=== PATIENT | male | born 1945 | race Caucasian/White ===

== ENCOUNTER 2019-12-06 12:38 | Outpatient (CLI) | payer OTHER | END 2019-12-06 23:59 | disposition home or self-care (01) | LOC: VAS 12:38 | PROVIDERS: ATTEND Orthopaedic Surgery | DX: I73.9 Peripheral vascular disease, unspecified (principal) | CPT/HCPCS: 93922 ==

== ENCOUNTER 2022-12-02 11:46 | Emergency (ER) | payer OTHER, MEDICARE ==
[~2022-12-02] VITALS: Ht 175.3 cm; Wt 79.1 kg
[~2022-12-02 11:46] MED LIST: AMLO10TA16 PO; APIX5TAB3 PO; ATOR-2 PO; BISA10SU62 RC; CYAN-104 PO; FERR325T28 PO; FLO0.4C PO; HYDR100T27 PO; INSU100V56 SQ; ISOS120T13 PO; LEVO100T PO; METO-411 PO; OMEP20CA16 PO; RANO500T3 PO
[2022-12-02 11:48] VITALS: BP 126/55; PULSE 72; RESP 16; TEMP 98.1; O2SAT 100
[2022-12-02 12:55] LABS: INR 1.1 INR; PROTHROMBIN TIME 11.6 SECONDS (9.0-12.0)
[2022-12-02 12:59] LABS: ALBUMIN 2.2 G/DL (3.4-5.0); ALBUMIN/GLOBULIN RATIO 0.5 (1.1-1.5); ANION GAP 10 (8-16); ASPARTATE AMINO TRANSFERASE 20 U/L (10-37); BILIRUBIN,TOTAL 0.5 MG/DL (0.1-1.0); BLOOD UREA NITROGEN 41 MG/DL (7-18); BUN/CREATININE RATIO 18.4 (10.0-20.0); CALCIUM 8.4 MG/DL (8.5-10.1); CHLORIDE 104 MMOL/L (99-107); CREATININE 2.23 MG/DL (0.60-1.10); GLUCOSE 145 MG/DL (70-104); POTASSIUM 5.4 MMOL/L (3.5-5.1); SODIUM 137 MMOL/L (135-145); TOTAL CARBON DIOXIDE 22.8 MMOL/L (24-32); TOTAL PROTEIN 6.5 G/DL (6.4-8.2); eCRCL 28 ML/MIN; eGFR 29 ML/MIN
[2022-12-02 13:00] LABS: ALANINE AMINOTRANSFERASE 15 U/L (12-78); ALKALINE PHOSPHATASE 71 IU/L (46-116)
[2022-12-02] MEDS ORDERED: CEPH-585 PO (13:32)
== END 2022-12-02 15:24 | disposition home or self-care (01) ==
LOC: ER 11:47
DX: T81.31XA Disruption of external operation (surgical) wound, not elsewhere classified, initial encounter (principal); K91.840 Postprocedural hemorrhage of a digestive system organ or structure following a digestive system procedure; I48.91 Unspecified atrial fibrillation; I25.10 Atherosclerotic heart disease of native coronary artery without angina pectoris; E78.00 Pure hypercholesterolemia, unspecified; I10 Essential (primary) hypertension; E11.9 Type 2 diabetes mellitus without complications; E03.9 Hypothyroidism, unspecified; Z85.9 Personal history of malignant neoplasm, unspecified; Z79.4 Long term (current) use of insulin; Z79.899 Other long term (current) drug therapy; Z85.51 Personal history of malignant neoplasm of bladder; Y83.8 Other surgical procedures as the cause of abnormal reaction of the patient, or of later complication, without mention of misadventure at the time of the procedure; Y73.3 Surgical instruments, materials and gastroenterology and urology devices (including sutures) associated with adverse incidents; Y92.89 Other specified places as the place of occurrence of the external cause
CPT/HCPCS: 12020; 36415; 80053; 85610; 99285; A6213; A6449

== ENCOUNTER 2022-12-31 21:40 | Inpatient (IN) | payer OTHER, MEDICARE ==
[~2022-12-31] VITALS: Ht 190.5 cm; Wt 79.5 kg
[~2022-12-31 21:40] MED LIST changes: +CEPH-585 PO
[2022-12-31 22:45] LABS: BASOPHILS # (AUTO) 0.1 X10'3 (0-0.2); EOSINOPHILS # (AUTO) 0.2 X10'3 (0-0.9); EOSINOPHILS % (AUTO) 2.2 % (0-6); HEMATOCRIT 22.9 % (42.0-52.0); HEMOGLOBIN 7.7 g/dl (14.0-17.9); LYMPHOCYTES # (AUTO) 1.3 X10'3 (1.1-4.8); LYMPHOCYTES % (AUTO) 18.1 % (21-51); MEAN CORPUSCULAR HEMOGLOBIN 30.2 PG (27.0-31.0); MEAN CORPUSCULAR HGB CONC 33.6 g/dL (33.0-36.5); MEAN CORPUSCULAR VOLUME 89.8 FL (78-98); MEAN PLATELET VOLUME 6.6 FL (7.4-10.4); MONOCYTES # (AUTO) 0.6 X10'3 (0-0.9); MONOCYTES % (AUTO) 8.4 % (2-12); NEUTROPHILS # (AUTO) 4.9 X10'3 (1.8-7.7); NEUTROPHILS % (AUTO) 70.3 % (42-75); PLATELET COUNT 229 X10'3 (140-440); RED BLOOD COUNT 2.55 X10'6 (4.70-6.10); RED CELL DISTRIBUTION WIDTH 14.9 % (11.5-14.5); WHITE BLOOD COUNT 6.9 X10'3 (4.5-11.0)
[2022-12-31 22:55] LABS: ALANINE AMINOTRANSFERASE 34 U/L (12-78); ALBUMIN 2.5 G/DL (3.4-5.0); ALBUMIN/GLOBULIN RATIO 0.5 (1.1-1.5); ALKALINE PHOSPHATASE 73 IU/L (46-116); ANION GAP 10 (8-16); ASPARTATE AMINO TRANSFERASE 29 U/L (10-37); BILIRUBIN,TOTAL 0.5 MG/DL (0.1-1.0); BLOOD UREA NITROGEN 80 MG/DL (7-18); BUN/CREATININE RATIO 31.7 (10.0-20.0); CALCIUM 8.4 MG/DL (8.5-10.1); CHLORIDE 102 MMOL/L (99-107); CREATININE 2.52 MG/DL (0.60-1.10); GLUCOSE 209 MG/DL (70-104); POTASSIUM 3.8 MMOL/L (3.5-5.1); SODIUM 131 MMOL/L (135-145); TOTAL PROTEIN 7.1 G/DL (6.4-8.2); eCRCL 28 ML/MIN; eGFR 25 ML/MIN
--- NOTE | 2023-01-01 00:53 | NUR ---
Patient bradycardic; HR 59 TO 33. Pt denies, cp, sob, dizziness.
[2023-01-01 02:20] LABS: THYROID STIMULATING HORMONE 1.14 ulU/ml (0.34-4.50)
[2023-01-01] MEDS ORDERED: bisacodyl 10mg suppository rectal RC PRN (03:20)
[2023-01-01] MEDS ORDERED: diphenhydrAMINE 25mg capsule PO PRN (03:20)
[2023-01-01] MEDS: normal saline 1000ml 1,000 ML IV SCH ×3 (03:20→19:43)
[2023-01-01] MEDS ORDERED: diphenhydrAMINE 50 mg/ml inj IV PRN (03:20)
[2023-01-01] MEDS ORDERED: HYDROcodone/acetaminophen 5mg/325mg tablet PO PRN (03:20)
[2023-01-01] MEDS ORDERED: acetaminophen 325mg tablet PO PRN ×2 (03:20)
[2023-01-01] MEDS ORDERED: morphine 2 MG/ML inj. syringe IV PRN (03:20)
[2023-01-01] MEDS ORDERED: mag hydrox/Alum hydrox/simeth 30ml oral suspension PO PRN (03:20)
[2023-01-01] MEDS ORDERED: ondansetron 4mg rapidly disintigrating tab PO PRN (03:20)
[2023-01-01] MEDS ORDERED: magnesium hydroxide 30ml (MOM) UD suspension PO PRN (03:20)
[2023-01-01] MEDS ORDERED: ondansetron/PF 4mg/2ml inj IV PRN (03:20)
[2023-01-01] MEDS ORDERED: DEXTROSE 15 GM of carb/4 tabs (each vial/BOTTLE has 4 tablets) PO PRN ×2 (03:25)
[2023-01-01] MEDS ORDERED: glucagon, human recombinant 1mg kit SUBCUT PRN (03:25)
[2023-01-01] MEDS ORDERED: insulin Lispro (HumaLOG) vial - multi-dose SQ SCH (03:25)
[2023-01-01] MEDS ORDERED: dextrose 50%-water 50ml dispensing syringe IV PRN ×2 (03:25)
[2023-01-01] MEDS ORDERED: MESSAGE TO PHARMACY PO ONE (03:25)
[2023-01-01 04:04] LABS: HEMOGLOBIN A1C 6.6 % (4.5-6.2)
[2023-01-01 04:11] LABS: APTT 35 SECONDS (22-32); D-DIMER 1.23 MG/L FEU (0-0.50); INR 1.2 INR; PROTHROMBIN TIME 12.4 SECONDS (9.0-12.0)
[2023-01-01 04:25] LABS: MAGNESIUM 1.4 MG/DL (1.5-2.4); PHOSPHORUS 3.7 MG/DL (2.3-4.5)
[2023-01-01 05:05] LABS: CLARITY,URINE TURBID (Clear); COLOR,URINE STRAW (Yellow); PH,URINE 6.5 (4.8-8.0); PROTEIN,URINE 30 mg/dl (Neg); UA COLLECTION TYPE FOLEY CATH
--- NOTE | 2023-01-01 05:05 | NUR ---
Patient has a urostomy site on his right abdomen that drains by gravity into a graduated bag. Pt also states he has a pressure wound on his left heel that is wrapped and covered in gauze. He states he as a similar wound but smaller on his right heel.
[2023-01-01 05:06] LABS: BILIRUBIN,URINE NEGATIVE (Neg); GLUCOSE, URINE NEGATIVE (Neg); KETONES,URINE NEGATIVE (Neg); LEUKOCYTE ESTERASE ,URINE LARGE (Neg); NITRITES, URINE POSITIVE (Neg); OCCULT BLOOD,URINE NEGATIVE (Neg); UROBILINOGEN,URINE 0.2 E.U/dL (0.2-1.0)
[2023-01-01 05:10] LABS: BACTERIA,URINE 4+ /HPF (Neg); RBC,URINE NONE SEEN /HPF (0-2); WBC,URINE TNTC /HPF (0-4)
[2023-01-01 05:11] LABS: SQUAMOUS EPITHELIAL CELL,UR NONE SEEN /LPF (FEW)
[2023-01-01 08:25] VITALS: BP 129/45; PULSE 59; RESP 13; TEMP 98.7; O2SAT 100
[2023-01-01 08:35] VITALS: RESP 13; O2SAT 100
[2023-01-01] MEDS: docusate sod 100mg capsule PO SCH ×2 (10:58→20:00)
[2023-01-01] MEDS: heparin, porcine 5000 units/ml vial SQ SCH ×2 (10:59→20:00)
[2023-01-01] MEDS: CefTRIAXone/D5W-Rocephin 1gm 50 ML IV SCH (10:59)
[2023-01-01 18:00] VITALS: BP 140/42; PULSE 61; RESP 18; TEMP 97.6; O2SAT 100
--- NOTE | 2023-01-01 18:24 | NUR ---
Report given to Veronica RUDOLPH. Pt resting comfortably at this time. Not much of an appetite at this time
[2023-01-01 20:00] VITALS: RESP 16; O2SAT 99
[2023-01-01] MEDS ORDERED: temazepam 15mg capsule PO PRN (21:00)
[2023-01-01] MEDS: insulin glargine (Lantus) pen - multi-dose SQ SCH (21:00)
[2023-01-01 22:00] VITALS: BP 157/42; PULSE 68; RESP 14; TEMP 97.8; O2SAT 100
[2023-01-02] VITALS (7 sets, daily range): BP systolic 97–165; BP diastolic 47–58; PULSE 55–64; RESP 14–20; TEMP 97–98; O2SAT 97–100
[2023-01-02 02:16] LABS: OCCULT BLOOD STOOL NEGATIVE (Neg)
[2023-01-02 06:19] LABS: INR 1.1 INR; PROTHROMBIN TIME 11.9 SECONDS (9.0-12.0)
[2023-01-02 06:24] LABS: BASOPHILS # (AUTO) 0.1 X10'3 (0-0.2); EOSINOPHILS # (AUTO) 0.2 X10'3 (0-0.9); EOSINOPHILS % (AUTO) 2.9 % (0-6); HEMATOCRIT 24.4 % (42.0-52.0); HEMOGLOBIN 8.2 g/dl (14.0-17.9); LYMPHOCYTES # (AUTO) 1.3 X10'3 (1.1-4.8); LYMPHOCYTES % (AUTO) 18.1 % (21-51); MEAN CORPUSCULAR HEMOGLOBIN 30.6 PG (27.0-31.0); MEAN CORPUSCULAR HGB CONC 33.5 g/dL (33.0-36.5); MEAN CORPUSCULAR VOLUME 91.5 FL (78-98); MEAN PLATELET VOLUME 6.5 FL (7.4-10.4); MONOCYTES # (AUTO) 0.5 X10'3 (0-0.9); MONOCYTES % (AUTO) 6.9 % (2-12); NEUTROPHILS % (AUTO) 71.1 % (42-75); PLATELET COUNT 225 X10'3 (140-440); RED BLOOD COUNT 2.67 X10'6 (4.70-6.10); RED CELL DISTRIBUTION WIDTH 15.2 % (11.5-14.5)
--- NOTE | 2023-01-02 06:33 | NUR ---
Problems reprioritized. Patient report given, questions answered & plan of care reviewed with johnna marinelli.
[2023-01-02 06:50] LABS: CHOL/HDL RATIO 2.6 (0.00-4.99); CHOLESTEROL 76 MG/DL (0-200); HDL CHOLESTEROL 29 MG/DL (35-60); LDL CHOLESTEROL 35 MG/DL (50-100); TRIGLYCERIDES 82 MG/DL (20-135)
[2023-01-02] MEDS: heparin, porcine 5000 units/ml vial SQ SCH ×2 (08:00→20:40)
[2023-01-02] MEDS: docusate sod 100mg capsule PO SCH ×2 (08:00→20:00)
[2023-01-02] MEDS: CefTRIAXone/D5W-Rocephin 1gm 50 ML IV SCH (08:22)
[2023-01-02] MEDS: normal saline 1000ml 1,000 ML IV SCH ×2 (09:20→19:20)
--- NOTE | 2023-01-02 18:35 | NUR ---
Report given to Roula WELSH pt resting comfortably and eating dinner. Addendum: 01/02/23 at 1835 by Sarah Beth Looney RN, RN Roula RUDOLPH
[2023-01-02] MEDS: insulin glargine (Lantus) pen - multi-dose SQ SCH (21:00)
[2023-01-03 02:00] VITALS: BP 142/52; PULSE 63; RESP 18; TEMP 97.8; O2SAT 97
--- NOTE | 2023-01-03 04:31 | NUR ---
LABORATORY TESTER documentation: I have reviewed and agree with assessment performed and documented by CARRIE Belcher
[2023-01-03] MEDS: normal saline 1000ml 1,000 ML IV SCH ×2 (05:20→08:11)
--- NOTE | 2023-01-03 06:22 | NUR ---
Patient in room PCU 3027. I have received report from Roula RUDOLPH and had the opportunity to ask questions and assume patient care.
[2023-01-03 06:33] LABS: INR 1.1 INR; PROTHROMBIN TIME 12.2 SECONDS (9.0-12.0)
[2023-01-03 06:48] LABS: BASOPHILS % (AUTO) 0.7 % (0-1); EOSINOPHILS # (AUTO) 0.3 X10'3 (0-0.9); EOSINOPHILS % (AUTO) 3.9 % (0-6); HEMATOCRIT 24.6 % (42.0-52.0); HEMOGLOBIN 8.3 g/dl (14.0-17.9); LYMPHOCYTES # (AUTO) 1.2 X10'3 (1.1-4.8); LYMPHOCYTES % (AUTO) 18.8 % (21-51); MEAN CORPUSCULAR HEMOGLOBIN 30.1 PG (27.0-31.0); MEAN CORPUSCULAR HGB CONC 33.7 g/dL (33.0-36.5); MEAN CORPUSCULAR VOLUME 89.4 FL (78-98); MEAN PLATELET VOLUME 6.4 FL (7.4-10.4); MONOCYTES # (AUTO) 0.5 X10'3 (0-0.9); MONOCYTES % (AUTO) 7.4 % (2-12); NEUTROPHILS # (AUTO) 4.5 X10'3 (1.8-7.7); NEUTROPHILS % (AUTO) 69.2 % (42-75); PLATELET COUNT 217 X10'3 (140-440); RED BLOOD COUNT 2.76 X10'6 (4.70-6.10); RED CELL DISTRIBUTION WIDTH 14.8 % (11.5-14.5); WHITE BLOOD COUNT 6.6 X10'3 (4.5-11.0)
[2023-01-03 07:00] VITALS: BP 157/52; PULSE 62; RESP 15; TEMP 97.3; O2SAT 99
[2023-01-03] MEDS: CefTRIAXone/D5W-Rocephin 1gm 50 ML IV SCH (07:49)
[2023-01-03] MEDS: docusate sod 100mg capsule PO SCH (08:00)
[2023-01-03] MEDS: heparin, porcine 5000 units/ml vial SQ SCH (08:04)
[2023-01-03 10:01] LABS: ALBUMIN 2.3 G/DL (3.4-5.0); ANION GAP 12 (8-16); BLOOD UREA NITROGEN 56 MG/DL (7-18); BUN/CREATININE RATIO 26.7 (10.0-20.0); CHLORIDE 107 MMOL/L (99-107); GLUCOSE 120 MG/DL (70-104); POTASSIUM 3.4 MMOL/L (3.5-5.1); SODIUM 135 MMOL/L (135-145); TOTAL CARBON DIOXIDE 16.5 MMOL/L (24-32); eCRCL 33 ML/MIN; eGFR 31 ML/MIN
[2023-01-03 10:09] LABS: CALCIUM 8.4 MG/DL (8.5-10.1)
--- NOTE | 2023-01-03 10:20 | NUR ---
Patient transfered to [facility] via gurney with [facility]le[facility] cargo. IV removed and tele monitor removed and returned to telephone solicitor supervisor. Report called to Travon RUDOLPH at [facility].
--- NOTE | 2023-01-03 12:16 | NUR ---
AGREE WITH CAMERA REPAIR TECHNICIAN AM ASSESSMENT
--- NOTE | 2023-01-03 14:38 | NUR ---
WOC unable to see patient today due to [facility] to a [facility] facility at 10:21am.
== END 2023-01-03 10:21 | DRG 683 ==
LOC: ER 21:41 → ED HOLD 01-01 03:21 → PCU 3S 01-01 08:29
PROVIDERS: ADMIT Family Medicine; ATTEND Family Medicine
DX: N17.0 Acute kidney failure with tubular necrosis (principal); E87.1 Hypo-osmolality and hyponatremia; I50.22 Chronic systolic (congestive) heart failure; E87.20 Acidosis, unspecified; I13.0 Hypertensive heart and chronic kidney disease with heart failure and stage 1 through stage 4 chronic kidney disease, or unspecified chronic kidney disease; I48.20 Chronic atrial fibrillation, unspecified; I49.8 Other specified cardiac arrhythmias; N17.9 Acute kidney failure, unspecified; E03.9 Hypothyroidism, unspecified; E78.00 Pure hypercholesterolemia, unspecified; I25.10 Atherosclerotic heart disease of native coronary artery without angina pectoris; B99.9 Unspecified infectious disease; U09.9 Post COVID-19 condition, unspecified; D64.9 Anemia, unspecified; N18.9 Chronic kidney disease, unspecified; K21.9 Gastro-esophageal reflux disease without esophagitis; M48.00 Spinal stenosis, site unspecified; E11.65 Type 2 diabetes mellitus with hyperglycemia; E11.22 Type 2 diabetes mellitus with diabetic chronic kidney disease; I27.20 Pulmonary hypertension, unspecified; Z79.01 Long term (current) use of anticoagulants; Z86.718 Personal history of other venous thrombosis and embolism; Z95.1 Presence of aortocoronary bypass graft; Z95.2 Presence of prosthetic heart valve; Z93.3 Colostomy status; Z79.899 Other long term (current) drug therapy; Z79.4 Long term (current) use of insulin; Z87.440 Personal history of urinary (tract) infections; Z82.3 Family history of stroke; Z83.3 Family history of diabetes mellitus; Z82.49 Family history of ischemic heart disease and other diseases of the circulatory system; Z80.9 Family history of malignant neoplasm, unspecified
CPT/HCPCS: 36415; 71045; 80048; 80053; 80061; 81001; 82272; 82800; 82948; 83036; 83605; 83735; 83880; 84100; 84443; 84484; 85025; 85379; 85610; 85730; 87040; 87077; 87081; 87088; 87186; 93005; 99285; A6212; A6213; A6222; A6223; A6250; A6258; A6446; A6449; G0378; J0696; J1644; J1815; J7030

== ENCOUNTER 2023-01-14 11:27 | Inpatient (IN) | payer OTHER, MEDICARE ==
[~2023-01-14] VITALS: Ht 190.5 cm; Wt 74.1 kg
[2023-01-14 12:35] LABS: BASOPHILS # (AUTO) 0.1 X10'3 (0-0.2); BASOPHILS % (AUTO) 0.5 % (0-1); EOSINOPHILS # (AUTO) 0.2 X10'3 (0-0.9); EOSINOPHILS % (AUTO) 1.6 % (0-6); HEMATOCRIT 26.5 % (42.0-52.0); HEMOGLOBIN 8.5 g/dl (14.0-17.9); LYMPHOCYTES # (AUTO) 1.3 X10'3 (1.1-4.8); LYMPHOCYTES % (AUTO) 10.6 % (21-51); MEAN CORPUSCULAR VOLUME 90.6 FL (78-98); MONOCYTES # (AUTO) 0.8 X10'3 (0-0.9); MONOCYTES % (AUTO) 6.5 % (2-12); NEUTROPHILS # (AUTO) 10.2 X10'3 (1.8-7.7); NEUTROPHILS % (AUTO) 80.8 % (42-75); PLATELET COUNT 238 X10'3 (140-440); RED BLOOD COUNT 2.93 X10'6 (4.70-6.10); WHITE BLOOD COUNT 12.6 X10'3 (4.5-11.0)
[2023-01-14 12:45] LABS: ALANINE AMINOTRANSFERASE 33 U/L (12-78); ALBUMIN 2.2 G/DL (3.4-5.0); ALBUMIN/GLOBULIN RATIO 0.5 (1.1-1.5); ALKALINE PHOSPHATASE 66 IU/L (46-116); ANION GAP 9 (8-16); ASPARTATE AMINO TRANSFERASE 61 U/L (10-37); BILIRUBIN,TOTAL 0.6 MG/DL (0.1-1.0); BLOOD UREA NITROGEN 61 MG/DL (7-18); BUN/CREATININE RATIO 19.4 (10.0-20.0); CALCIUM 8.9 MG/DL (8.5-10.1); CHLORIDE 103 MMOL/L (99-107); CREATININE 3.14 MG/DL (0.60-1.10); GLUCOSE 107 MG/DL (70-104); POTASSIUM 5.2 MMOL/L (3.5-5.1); SODIUM 128 MMOL/L (135-145); TOTAL CARBON DIOXIDE 16.4 MMOL/L (24-32); TOTAL PROTEIN 6.6 G/DL (6.4-8.2); eCRCL 21 ML/MIN; eGFR 19 ML/MIN
[2023-01-14 12:54] LABS: PRO BRAIN NATRIURETIC PEPTIDE 21262 PG/ML (0-450)
--- NOTE | 2023-01-14 15:22 | NUR ---
assuming care of pt primary rn redirected
[2023-01-14] MEDS ORDERED: CefTRIAXone 1000mg IM Kit (w/lidocaine diluent) IM ONE (15:35)
[2023-01-14 15:53] LABS: BASOPHILS # (AUTO) 0.1 X10'3 (0-0.2); BASOPHILS % (AUTO) 0.6 % (0-1); EOSINOPHILS # (AUTO) 0.2 X10'3 (0-0.9); EOSINOPHILS % (AUTO) 1.6 % (0-6); HEMATOCRIT 25.5 % (42.0-52.0); HEMOGLOBIN 8.3 g/dl (14.0-17.9); LYMPHOCYTES # (AUTO) 1.5 X10'3 (1.1-4.8); LYMPHOCYTES % (AUTO) 12.5 % (21-51); MEAN CORPUSCULAR HEMOGLOBIN 29.4 PG (27.0-31.0); MEAN CORPUSCULAR HGB CONC 32.6 g/dL (33.0-36.5); MEAN CORPUSCULAR VOLUME 90.2 FL (78-98); MEAN PLATELET VOLUME 6.4 FL (7.4-10.4); MONOCYTES # (AUTO) 0.8 X10'3 (0-0.9); MONOCYTES % (AUTO) 6.5 % (2-12); NEUTROPHILS # (AUTO) 9.7 X10'3 (1.8-7.7); NEUTROPHILS % (AUTO) 78.8 % (42-75); PLATELET COUNT 244 X10'3 (140-440); RED BLOOD COUNT 2.83 X10'6 (4.70-6.10); RED CELL DISTRIBUTION WIDTH 15.8 % (11.5-14.5); WHITE BLOOD COUNT 12.3 X10'3 (4.5-11.0)
[2023-01-14] MEDS ORDERED: mag hydrox/Alum hydrox/simeth 30ml oral suspension PO PRN (17:20)
[2023-01-14] MEDS ORDERED: acetaminophen 325mg tablet PO PRN ×2 (17:20)
[2023-01-14] MEDS ORDERED: morphine 2 MG/ML inj. syringe IV PRN ×2 (17:20)
[2023-01-14] MEDS ORDERED: ondansetron/PF 4mg/2ml inj IV PRN (17:20)
[2023-01-14] MEDS ORDERED: magnesium hydroxide 30ml (MOM) UD suspension PO PRN (17:20)
[2023-01-14] MEDS ORDERED: CefTRIAXone/D5W-Rocephin 1gm 50 ML IV ONE (17:30)
[2023-01-14] MEDS ORDERED: DRON2.5C18 PO (17:42)
[2023-01-14] MEDS ORDERED: SODI100035 PO (17:42)
[2023-01-14] MEDS ORDERED: TEMA15CA5 PO (17:42)
[2023-01-14] MEDS ORDERED: INSU100V49 SQ (17:42)
[2023-01-14] MEDS ORDERED: HYDR-3965 PO (17:42)
[2023-01-14] MEDS ORDERED: AMLO5TAB PO (17:42)
[2023-01-14] MEDS ORDERED: METO-384 PO (17:42)
[2023-01-14] MEDS ORDERED: HYDR-4070 PO (17:42)
[2023-01-14] MEDS ORDERED: INSU100V56 SQ (17:42)
[2023-01-14] MEDS ORDERED: ASCO500C17 PO (17:42)
[2023-01-14] MEDS: normal saline 1000ml 1,000 ML IV SCH ×2 (17:43→22:00)
--- NOTE | 2023-01-14 18:26 | NUR ---
ROCEPHINE 1 GM COMPLETED INFUSION PT KERI WELL NO ADVERSE RXNT NOTED
[2023-01-14] MEDS: docusate sod 100mg capsule PO SCH (20:00)
--- NOTE | 2023-01-14 22:00 | NUR ---
Patient in room ORTHO 4011. I have received report from BLAISE Washington and had the opportunity to ask questions and assume patient care.
[2023-01-14] MEDS ORDERED: glucagon, human recombinant 1mg kit SUBCUT PRN (23:15)
[2023-01-14] MEDS ORDERED: MESSAGE TO PHARMACY PO ONE (23:15)
[2023-01-14] MEDS ORDERED: dextrose 50%-water 50ml dispensing syringe IV PRN ×2 (23:15)
[2023-01-14] MEDS ORDERED: DEXTROSE 15 GM of carb/4 tabs (each vial/BOTTLE has 4 tablets) PO PRN ×2 (23:15)
[2023-01-14] MEDS ORDERED: insulin Lispro (HumaLOG) vial - multi-dose SQ SCH (23:15)
[2023-01-14 23:45] VITALS: RESP 17; O2SAT 97
[2023-01-15] VITALS: BP 132/49; PULSE 72; RESP 17; TEMP 97.2; O2SAT 98
[2023-01-15] MEDS: normal saline 1000ml 1,000 ML IV SCH (03:13)
[2023-01-15 06:00] VITALS: BP 141/47; PULSE 79; RESP 16; TEMP 97.9; O2SAT 98
--- NOTE | 2023-01-15 06:35 | NUR ---
Patient in room ORTHO 4011. I have received report from Asha and had the opportunity to ask questions and assume patient care.
[2023-01-15] MEDS: docusate sod 100mg capsule PO SCH ×2 (06:39→20:00)
--- NOTE | 2023-01-15 06:40 | NUR ---
Problems reprioritized. Patient report given, questions answered & plan of care reviewed with BLAISE Coughlin.
[2023-01-15 08:33] LABS: BASOPHILS # (AUTO) 0.1 X10'3 (0-0.2); BASOPHILS % (AUTO) 0.4 % (0-1); EOSINOPHILS # (AUTO) 0.1 X10'3 (0-0.9); HEMATOCRIT 26.2 % (42.0-52.0); HEMOGLOBIN 8.4 g/dl (14.0-17.9); LYMPHOCYTES # (AUTO) 0.9 X10'3 (1.1-4.8); LYMPHOCYTES % (AUTO) 6.8 % (21-51); MEAN CORPUSCULAR HEMOGLOBIN 29.3 PG (27.0-31.0); MEAN CORPUSCULAR HGB CONC 32.1 g/dL (33.0-36.5); MEAN CORPUSCULAR VOLUME 91.3 FL (78-98); MEAN PLATELET VOLUME 6.6 FL (7.4-10.4); MONOCYTES # (AUTO) 0.9 X10'3 (0-0.9); MONOCYTES % (AUTO) 6.8 % (2-12); NEUTROPHILS # (AUTO) 11.8 X10'3 (1.8-7.7); PLATELET COUNT 232 X10'3 (140-440); RED BLOOD COUNT 2.87 X10'6 (4.70-6.10); WHITE BLOOD COUNT 13.9 X10'3 (4.5-11.0)
[2023-01-15 09:02] LABS: ALBUMIN 2.1 G/DL (3.4-5.0); ANION GAP 12 (8-16); BLOOD UREA NITROGEN 56 MG/DL (7-18); BUN/CREATININE RATIO 18.8 (10.0-20.0); CALCIUM 8.3 MG/DL (8.5-10.1); CHLORIDE 105 MMOL/L (99-107); CREATININE 2.98 MG/DL (0.60-1.10); GLUCOSE 94 MG/DL (70-104); POTASSIUM 4.6 MMOL/L (3.5-5.1); SODIUM 130 MMOL/L (135-145); eCRCL 22 ML/MIN; eGFR 21 ML/MIN
[2023-01-15 09:08] LABS: TOTAL CARBON DIOXIDE 12.6 MMOL/L (24-32)
--- NOTE | 2023-01-15 09:16 | NUR ---
PAGER ID: [phone] MESSAGE: Critical CO2 on Bala Cordero in [id number] -Madyson [phone]
[2023-01-15] MEDS ORDERED: temazepam 15mg capsule PO PRN (13:20)
[2023-01-15] MEDS ORDERED: MESSAGE TO PHARMACY PO ONE (13:55)
[2023-01-15] MEDS ORDERED: insulin Lispro (HumaLOG) vial - multi-dose SQ SCH (13:55)
[2023-01-15] MEDS ORDERED: dextrose 50%-water 50ml dispensing syringe IV PRN ×2 (13:55)
[2023-01-15] MEDS ORDERED: DEXTROSE 15 GM of carb/4 tabs (each vial/BOTTLE has 4 tablets) PO PRN ×2 (13:55)
[2023-01-15] MEDS ORDERED: glucagon, human recombinant 1mg kit SUBCUT PRN (13:55)
[2023-01-15] MEDS: HYDROcodone/acetaminophen 5mg/325mg tablet PO PRN ×2 (14:20→20:39)
--- NOTE | 2023-01-15 15:49 | NUR ---
Low jill and malnutrition consult: Per RN malnutrition screen pt reports 24-33 pound wt loss and a decreased intake/appetite. Pt seen at bedside states he's lost about 60 pounds in one year and used to weigh 230 pounds. Prior wt in EMR on 05/28/21 of 100kg (220 pounds) though current wt of 74.09kg (163 pounds is not scaled). Pt states he tries to drink Boost at home since he has two cases though is nervous about drinking them due to his"kidney problems and the doctors working hard to improve them." Pt did not have physical signs of fat or muscle wasting at this time. Additionally pt does not have edema nor muscle weakness therefore lacking a minimum of two malnutrition criteria at this time. Pt agreeable to drinking Nepro to better help meet estimated needs; MD notified. Pt is currently on a carbohydrate controlled diet with 0-25% intake for first two meals. Discussed with RN regarding liberalizing to regular diet given carbohydrate controlled not appropriate due to A1c of 6.6%. Pt also request chicken noodle soup, cream of chicken, or tomato soup with lunch and dinner meals; communicated with dietary. Pt presents with a a low jill score of 11 per EMR. Per RN physical assessment pt has a reddened to coccyx area and diabetic ulcer to heal though not resulting in wound care consult at this time per EMR. Will continue to follow and make recommendations as appropriate. Addendum: 01/15/23 at [address] Amended: Links added.
[2023-01-15 16:02] LABS: HEMOGLOBIN A1C 5.9 % (4.5-6.2)
--- NOTE | 2023-01-15 17:19 | NUR ---
PAGER ID: [phone] MESSAGE: Bala Cordero in [id number] - so you want to continue tele? Pt in afib. -Madyson [phone]
[2023-01-15] MEDS ORDERED: NUT.TX.IMP.RENAL FXN,LAC-REDUC (Nepro) 237 ML VANILLA PO SCH (17:30)
[2023-01-15 18:00] VITALS: BP 129/48; PULSE 64; RESP 18; TEMP 97.5; O2SAT 97
--- NOTE | 2023-01-15 18:40 | NUR ---
Patient in room ORTHO 4011. I have received report from BLAISE Coughlin and had the opportunity to ask questions and assume patient care.
[2023-01-15 20:00] VITALS: RESP 14; O2SAT 96
[2023-01-15] MEDS: atorvastatin 20mg tablet PO SCH (20:38)
[2023-01-15] MEDS: ferrous sulfate 325mg tablet PO SCH (20:38)
[2023-01-15] MEDS: ranolazine 500mg SR tablet (Q12H) PO SCH (20:38)
[2023-01-15] MEDS: ascorbic acid 500mg tablet PO SCH (20:39)
[2023-01-15] MEDS: apixaban 5mg tablet PO SCH (20:39)
[2023-01-15] MEDS: insulin glargine (Lantus) pen - multi-dose SQ SCH ×2 (21:00)
[2023-01-15 22:00] VITALS: BP 129/45; PULSE 64; RESP 14; TEMP 98; O2SAT 96
[2023-01-16 03:31] LABS: ABG BASE EXCESS -14.8 mmol/L (-2.0-2.0); ABG HCO3 10.4 mmol/L (22.0-26.0); ABG PCO2 (T) 22.1 mmHg (35.0-48.0); ABG PH (T) 7.287 (7.340-7.440); ABG PO2 (T) 90.2 mmHg (75.0-100.0); FCOHb 0.3 % (0.0-3.9); FMetHb 0.3 % (0.0-1.5); FO2Hb 96.4 % (94-97); MODE ROOM AIR; PATIENT TEMPERATURE 36.5; TOTAL HEMOGLOBIN 8.9 G/dl (14.0-17.9)
[2023-01-16] MEDS ORDERED: sodium bicarbonate (8.4%) inj. 100 MEQ in dextrose 5%-water 1,000 ML IV PRN (03:55)
[2023-01-16] MEDS: sodium bicarbonate (8.4%) inj. 100 MEQ in dextrose 5%-water 1,000 ML IV SCH ×2 (05:15→15:57)
--- NOTE | 2023-01-16 06:30 | NUR ---
Patient in room ORTHO 4011. I have received report from MARY ANN WELSH and had the opportunity to ask questions and assume patient care.
--- NOTE | 2023-01-16 06:31 | NUR ---
Problems reprioritized. Patient report given, questions answered & plan of care reviewed with BLAISE Moreau.
[2023-01-16 06:36] VITALS: BP 146/47; PULSE 86; RESP 22; TEMP 97.6; O2SAT 98
[2023-01-16 06:53] LABS: BASOPHILS # (AUTO) 0.1 X10'3 (0-0.2); BASOPHILS % (AUTO) 0.5 % (0-1); EOSINOPHILS # (AUTO) 0.2 X10'3 (0-0.9); EOSINOPHILS % (AUTO) 1.5 % (0-6); HEMATOCRIT 26.9 % (42.0-52.0); HEMOGLOBIN 8.8 g/dl (14.0-17.9); LYMPHOCYTES # (AUTO) 1.3 X10'3 (1.1-4.8); LYMPHOCYTES % (AUTO) 10.9 % (21-51); MEAN CORPUSCULAR HEMOGLOBIN 29.7 PG (27.0-31.0); MEAN CORPUSCULAR HGB CONC 32.6 g/dL (33.0-36.5); MEAN PLATELET VOLUME 6.2 FL (7.4-10.4); MONOCYTES # (AUTO) 0.7 X10'3 (0-0.9); MONOCYTES % (AUTO) 5.9 % (2-12); NEUTROPHILS # (AUTO) 9.8 X10'3 (1.8-7.7); NEUTROPHILS % (AUTO) 81.2 % (42-75); PLATELET COUNT 229 X10'3 (140-440); RED BLOOD COUNT 2.95 X10'6 (4.70-6.10); RED CELL DISTRIBUTION WIDTH 16.1 % (11.5-14.5); WHITE BLOOD COUNT 12.1 X10'3 (4.5-11.0)
[2023-01-16 07:20] LABS: ANION GAP 15 (8-16); BLOOD UREA NITROGEN 51 MG/DL (7-18); BUN/CREATININE RATIO 18.1 (10.0-20.0); CALCIUM 8.3 MG/DL (8.5-10.1); CHLORIDE 105 MMOL/L (99-107); CREATININE 2.81 MG/DL (0.60-1.10); GLUCOSE 127 MG/DL (70-104); POTASSIUM 4.2 MMOL/L (3.5-5.1); SODIUM 132 MMOL/L (135-145); eCRCL 23 ML/MIN; eGFR 22 ML/MIN
--- NOTE | 2023-01-16 07:31 | NUR ---
PAGER ID: [phone] MESSAGE: BLAISE WILOCX, ORTHO, 8798. RE: [id number]. CRITICAL LAB C02 12
[2023-01-16] MEDS: cyanocobalamin 500mcg tablet PO SCH (07:51)
[2023-01-16] MEDS: tamsulosin 0.4mg capsule PO SCH (07:51)
[2023-01-16] MEDS: ascorbic acid 500mg tablet PO SCH ×2 (07:52→20:21)
[2023-01-16] MEDS: levoTHYROXINE 100mcg tablet PO SCH (07:52)
[2023-01-16] MEDS: ranolazine 500mg SR tablet (Q12H) PO SCH ×2 (07:52→20:22)
[2023-01-16] MEDS: ferrous sulfate 325mg tablet PO SCH ×2 (07:52→20:21)
[2023-01-16] MEDS: docusate sod 100mg capsule PO SCH ×2 (07:53→20:00)
[2023-01-16] MEDS: apixaban 5mg tablet PO SCH ×2 (07:53→20:21)
[2023-01-16] MEDS: pantoprazole 40mg Tablet.DR PO SCH ×2 (07:53→09:38)
[2023-01-16] MEDS ORDERED: metoprolol succinate 25mg (24-HOUR) SR. Tablet PO SCH (08:00)
[2023-01-16] MEDS ORDERED: amLODIPine 5mg tablet PO SCH (08:00)
[2023-01-16] MEDS: dronabinol 2.5mg capsule PO SCH (08:40)
[2023-01-16 10:00] VITALS: BP 134/44; PULSE 68; RESP 16; TEMP 97.8; O2SAT 99
[2023-01-16 10:39] LABS: C DIFF ANTIGEN POSITIVE (NEGATIVE); C DIFF SPECIMEN=DIARRHEA? ACCEPTABLE; C DIFFICILE TOXINS A&B POSITIVE (Neg)
--- NOTE | 2023-01-16 10:41 | NUR ---
PAGER ID: [phone] MESSAGE: BLAISE WILCOX, ORTHO, 8881. RE: [id number]. PT. POSSITIVE FOR C-DIFF
--- NOTE | 2023-01-16 11:49 | NUR ---
PAGER ID: [phone] MESSAGE: BLAISE WILCOX, ORTHO, 0082. RE: [id number]. CAN I DC GLUCOSE CHECK, A1C 5.9?
[2023-01-16 12:10] VITALS: RESP 16; O2SAT 99
--- NOTE | 2023-01-16 12:18 | NUR ---
PT. HAS A UROSTOMY WITH DRAINABLE BAG Addendum: 01/16/23 at 1229 by Kishor Cotter RN Amended: Links added.
--- NOTE | 2023-01-16 12:18 | NUR ---
Patient has a urostomy with drainable bag for urine Addendum: 01/16/23 at 1229 by Genet BRIGGS Amended: Links added.
[2023-01-16] MEDS: vancomycin 125mg/5ml ORAL solution 5ml UD oral syringe PO SCH ×2 (15:07→20:21)
[2023-01-16] MEDS: HYDROcodone/acetaminophen 5mg/325mg tablet PO PRN (15:59)
--- NOTE | 2023-01-16 17:12 | NUR ---
Student's charting reviewed by the instructor.
[2023-01-16 18:00] VITALS: BP 139/44; PULSE 61; RESP 16; TEMP 98.1; O2SAT 97
--- NOTE | 2023-01-16 18:44 | NUR ---
Problems reprioritized. Patient report given TO JULY RN, questions answered & plan of care reviewed with .
[2023-01-16] MEDS: sodium bicarbonate 650mg tablet PO SCH (20:21)
[2023-01-16] MEDS: atorvastatin 20mg tablet PO SCH (20:22)
[2023-01-16] MEDS: insulin glargine (Lantus) pen - multi-dose SQ SCH ×2 (21:00)
[2023-01-16 22:00] VITALS: BP 140/42; PULSE 64; RESP 16; TEMP 97.7; O2SAT 99
[2023-01-17] MEDS: vancomycin 125mg/5ml ORAL solution 5ml UD oral syringe PO SCH ×3 (02:37→12:42)
[2023-01-17 06:09] LABS: BASOPHILS # (AUTO) 0.1 X10'3 (0-0.2); BASOPHILS % (AUTO) 0.4 % (0-1); EOSINOPHILS # (AUTO) 0.2 X10'3 (0-0.9); EOSINOPHILS % (AUTO) 1.7 % (0-6); HEMATOCRIT 26.1 % (42.0-52.0); HEMOGLOBIN 8.6 g/dl (14.0-17.9); LYMPHOCYTES # (AUTO) 1.3 X10'3 (1.1-4.8); LYMPHOCYTES % (AUTO) 8.7 % (21-51); MEAN CORPUSCULAR HEMOGLOBIN 29.5 PG (27.0-31.0); MEAN CORPUSCULAR HGB CONC 33.1 g/dL (33.0-36.5); MEAN PLATELET VOLUME 6.6 FL (7.4-10.4); MONOCYTES # (AUTO) 0.9 X10'3 (0-0.9); MONOCYTES % (AUTO) 6.3 % (2-12); NEUTROPHILS # (AUTO) 12.3 X10'3 (1.8-7.7); NEUTROPHILS % (AUTO) 82.9 % (42-75); PLATELET COUNT 229 X10'3 (140-440); RED BLOOD COUNT 2.93 X10'6 (4.70-6.10); WHITE BLOOD COUNT 14.8 X10'3 (4.5-11.0)
[2023-01-17 06:17] LABS: ALBUMIN 1.8 G/DL (3.4-5.0); ANION GAP 14 (8-16); BLOOD UREA NITROGEN 45 MG/DL (7-18); BUN/CREATININE RATIO 16.8 (10.0-20.0); CALCIUM 7.7 MG/DL (8.5-10.1); CHLORIDE 104 MMOL/L (99-107); CREATININE 2.68 MG/DL (0.60-1.10); GLUCOSE 155 MG/DL (70-104); POTASSIUM 3.4 MMOL/L (3.5-5.1); SODIUM 133 MMOL/L (135-145); TOTAL CARBON DIOXIDE 15.1 MMOL/L (24-32); eCRCL 24 ML/MIN; eGFR 23 ML/MIN
--- NOTE | 2023-01-17 06:30 | NUR ---
RECEIVED REPORT FROM GISEL, RN
[2023-01-17] MEDS ORDERED: potassium Cl 20 mEq SR tablet PO STA (07:53)
[2023-01-17] MEDS: docusate sod 100mg capsule PO SCH (07:57)
[2023-01-17] MEDS: dronabinol 2.5mg capsule PO SCH (08:00)
[2023-01-17] MEDS ORDERED: amLODIPine 5mg tablet PO SCH (08:00)
[2023-01-17] MEDS: tamsulosin 0.4mg capsule PO SCH (08:00)
[2023-01-17] MEDS: ferrous sulfate 325mg tablet PO SCH (08:06)
[2023-01-17] MEDS: ascorbic acid 500mg tablet PO SCH (08:06)
[2023-01-17] MEDS: apixaban 5mg tablet PO SCH (08:07)
[2023-01-17] MEDS: sodium bicarbonate 650mg tablet PO SCH ×2 (08:07→12:42)
[2023-01-17] MEDS: ranolazine 500mg SR tablet (Q12H) PO SCH (08:07)
[2023-01-17] MEDS: cyanocobalamin 500mcg tablet PO SCH (08:07)
[2023-01-17] MEDS: levoTHYROXINE 100mcg tablet PO SCH (08:07)
[2023-01-17] MEDS: pantoprazole 40mg Tablet.DR PO SCH (08:09)
[2023-01-17 10:00] VITALS: BP_SYST 121; BP_SYST 133; BP_DIAS 44; BP_DIAS 65; PULSE 64; PULSE 65; RESP 15; RESP 16; TEMP 98; TEMP 98.3; O2SAT 97; O2SAT 98
--- NOTE | 2023-01-17 13:52 | NUR ---
PRESSURE ULCER EDUCATION: DEFINITION: A pressure ulcer is an area of skin that breaks down when you stay in one position too long. The constant pressure against the skin reduces the blood flow to that area and the affected tissue dies. CAUSES: "Being bedridden or in a wheelchair "Fragile skin "Having a chronic condition, such as diabetes or vascular disease "Inability to move certain parts of your body without assistance "Older age "Incontinence of urine or stool SYMPTOMS: "A reddened area that DOES NOT turn white when pressed on - this can be the beginning of a pressure ulcer "A blister, deep sore or a crater - these can be advanced pressure ulcers FIRST AID: "Relieve the pressure on this area "Keep the area clean and dry "Call your primary doctor if you see any of the above symptoms "DO NOT massage the area "DO NOT use a donut shaped or ring shaped pillow- these actually interfere with the blood flow and cause complications PREVENTION: "Check for pressure ulcers everyday "Change position at least every two hours to relieve pressure "Use items that help relieve pressure- pillows, sheepskin, foam padding, and powders. "Keep skin clean and dry "Eat healthy well balanced meals "Exercise daily IF YOU SEE ANY OF THESE SYMPTOMS WHILE IN THE HOSPITAL - TELL YOUR NURSE IMMEDIATELY. IF YOU SEE ANY OF THESE SYMPTOMS WHILE AT HOME OR HAVE ANY QUESTIONS OR CONCERNS ABOUT PRESSURE ULCERS - CALL YOUR PRIMARY DOCTOR IMMEDIATELY. Addendum: 01/17/23 at 1353 by Emmanuel Jackson RN Amended: Links added.
--- NOTE | 2023-01-17 15:17 | NUR ---
gave report to yves shaffer at [facility]
== END 2023-01-17 16:49 | DRG 308 ==
LOC: ER 11:28 → ED HOLD 17:25 → EDBEDREQ 21:04 → ORTHO 4S 23:45
PROVIDERS: ADMIT Internal Medicine; ATTEND Internal Medicine
DX: R00.1 Bradycardia, unspecified (principal); N17.0 Acute kidney failure with tubular necrosis; R65.10 Systemic inflammatory response syndrome (SIRS) of non-infectious origin without acute organ dysfunction; E03.9 Hypothyroidism, unspecified; I12.9 Hypertensive chronic kidney disease with stage 1 through stage 4 chronic kidney disease, or unspecified chronic kidney disease; N18.30 Chronic kidney disease, stage 3 unspecified; E10.9 Type 1 diabetes mellitus without complications; E78.00 Pure hypercholesterolemia, unspecified; I25.10 Atherosclerotic heart disease of native coronary artery without angina pectoris; I48.0 Paroxysmal atrial fibrillation; D50.9 Iron deficiency anemia, unspecified; Z79.4 Long term (current) use of insulin; Z95.1 Presence of aortocoronary bypass graft; Z80.9 Family history of malignant neoplasm, unspecified; Z82.3 Family history of stroke; Z82.49 Family history of ischemic heart disease and other diseases of the circulatory system; Z83.3 Family history of diabetes mellitus; Z85.51 Personal history of malignant neoplasm of bladder; Z86.73 Personal history of transient ischemic attack (TIA), and cerebral infarction without residual deficits; T50.905A Adverse effect of unspecified drugs, medicaments and biological substances, initial encounter; Y92.89 Other specified places as the place of occurrence of the external cause
CPT/HCPCS: 36415; 36600; 71045; 80048; 80053; 82803; 82948; 83036; 83605; 83880; 84484; 85018; 85025; 87040; 87081; 87324; 87449; 93005; 93306; 99285; A5200; A6212; A6213; A6222; A6250; A6449; G0378; J0696; J1815; J2405; J3490; J7030; J7070; Q0167

== ENCOUNTER 2023-01-28 16:08 | Inpatient (IN) | payer OTHER, MEDICARE ==
[~2023-01-28] VITALS: Ht 190.5 cm; Wt 72.7 kg
[~2023-01-28 16:08] MED LIST changes: -AMLO10TA16 PO; +AMLO5TAB PO; +ASCO500C17 PO; -BISA10SU62 RC; -CEPH-585 PO; +DRON2.5C18 PO; +HYDR-3965 PO; +HYDR-4070 PO; -HYDR100T27 PO; +INSU100V49 SQ; +METO-384 PO; -METO-411 PO; +SODI100035 PO; +TEMA15CA5 PO
[2023-01-28 20:01] LABS: BASOPHILS # (AUTO) 0.1 X10'3 (0-0.2); BASOPHILS % (AUTO) 0.8 % (0-1); EOSINOPHILS # (AUTO) 0.2 X10'3 (0-0.9); EOSINOPHILS % (AUTO) 1.8 % (0-6); HEMATOCRIT 27.3 % (42.0-52.0); HEMOGLOBIN 8.9 g/dl (14.0-17.9); LYMPHOCYTES # (AUTO) 1.1 X10'3 (1.1-4.8); LYMPHOCYTES % (AUTO) 10.7 % (21-51); MEAN CORPUSCULAR HEMOGLOBIN 29.9 PG (27.0-31.0); MEAN CORPUSCULAR HGB CONC 32.8 g/dL (33.0-36.5); MEAN CORPUSCULAR VOLUME 91.1 FL (78-98); MEAN PLATELET VOLUME 6.6 FL (7.4-10.4); MONOCYTES # (AUTO) 0.7 X10'3 (0-0.9); MONOCYTES % (AUTO) 6.6 % (2-12); NEUTROPHILS # (AUTO) 8.4 X10'3 (1.8-7.7); NEUTROPHILS % (AUTO) 80.1 % (42-75); PLATELET COUNT 307 X10'3 (140-440); RED BLOOD COUNT 2.99 X10'6 (4.70-6.10); RED CELL DISTRIBUTION WIDTH 17.3 % (11.5-14.5); WHITE BLOOD COUNT 10.5 X10'3 (4.5-11.0)
[2023-01-28 20:10] LABS: ALANINE AMINOTRANSFERASE 53 U/L (12-78); ALBUMIN 2.2 G/DL (3.4-5.0); ALBUMIN/GLOBULIN RATIO 0.4 (1.1-1.5); ALKALINE PHOSPHATASE 75 IU/L (46-116); ANION GAP 8 (8-16); ASPARTATE AMINO TRANSFERASE 42 U/L (10-37); BILIRUBIN,TOTAL 0.6 MG/DL (0.1-1.0); BLOOD UREA NITROGEN 71 MG/DL (7-18); BUN/CREATININE RATIO 26.3 (10.0-20.0); CALCIUM 9.3 MG/DL (8.5-10.1); CHLORIDE 102 MMOL/L (99-107); GLUCOSE 214 MG/DL (70-104); POTASSIUM 5.8 MMOL/L (3.5-5.1); SODIUM 132 MMOL/L (135-145); TOTAL CARBON DIOXIDE 22.1 MMOL/L (24-32); TOTAL PROTEIN 7.3 G/DL (6.4-8.2); eCRCL 24 ML/MIN; eGFR 23 ML/MIN
[2023-01-28] MEDS ORDERED: normal saline 1000ML IV soln IVB ONE (20:15)
[2023-01-28 20:19] LABS: PRO BRAIN NATRIURETIC PEPTIDE 14222 PG/ML (0-450)
[2023-01-28] MEDS ORDERED: azithromycin/NS 500mg/250ml 250 ML IV ONE (20:50)
[2023-01-28] MEDS ORDERED: CefTRIAXone/D5W-Rocephin 1gm 50 ML IV ONE (20:50)
[2023-01-28] MEDS ORDERED: temazepam 15mg capsule PO PRN (21:00)
[2023-01-28] MEDS ORDERED: diphenhydrAMINE 50 mg/ml inj IV PRN (23:30)
[2023-01-28] MEDS ORDERED: HYDROcodone/acetaminophen 5mg/325mg tablet PO PRN (23:30)
[2023-01-28] MEDS ORDERED: ondansetron 4mg rapidly disintigrating tab PO PRN (23:30)
[2023-01-28] MEDS ORDERED: mag hydrox/Alum hydrox/simeth 30ml oral suspension PO PRN (23:30)
[2023-01-28] MEDS ORDERED: bisacodyl 10mg suppository rectal RC PRN (23:30)
[2023-01-28] MEDS ORDERED: ipratropium/albuterol 3ml nebule NEB PRN (23:30)
[2023-01-28] MEDS ORDERED: acetaminophen 650mg rectal suppository RC PRN (23:30)
[2023-01-28] MEDS: normal saline 1000ml 1,000 ML IV SCH (23:30)
[2023-01-28] MEDS ORDERED: ondansetron/PF 4mg/2ml inj IV PRN (23:30)
[2023-01-28] MEDS ORDERED: diphenhydrAMINE 25mg capsule PO PRN (23:30)
[2023-01-28] MEDS ORDERED: morphine 2 MG/ML inj. syringe IV PRN ×2 (23:30)
[2023-01-28] MEDS ORDERED: magnesium hydroxide 30ml (MOM) UD suspension PO PRN (23:30)
[2023-01-28] MEDS ORDERED: acetaminophen 325mg tablet PO PRN ×2 (23:30)
[2023-01-28] MEDS ORDERED: glucagon, human recombinant 1mg kit SUBCUT PRN (23:35)
[2023-01-28] MEDS ORDERED: CALCIUM GLUC 1gm/50ml NACL,iso 50 ML IV ONE (23:35)
[2023-01-28] MEDS ORDERED: MESSAGE TO PHARMACY PO ONE (23:35)
[2023-01-28] MEDS ORDERED: DEXTROSE 15 GM of carb/4 tabs (each vial/BOTTLE has 4 tablets) PO PRN ×2 (23:35)
[2023-01-28] MEDS ORDERED: dextrose 50%-water 50ml dispensing syringe IV PRN ×2 (23:35)
[2023-01-28] MEDS ORDERED: sodium bicarbonate (8.4%) 1 mEq/ml syringe IV ONE (23:35)
[2023-01-28 23:59] LABS: MAGNESIUM 1.8 MG/DL (1.5-2.4); PHOSPHORUS 3.6 MG/DL (2.3-4.5)
[2023-01-29] VITALS (11 sets, daily range): BP systolic 90–156; BP diastolic 54–65; PULSE 63–82; RESP 12–20; TEMP 97.5–98.6; O2SAT 92–100
[2023-01-29 01:26] LABS: BASOPHILS # (AUTO) 0.1 X10'3 (0-0.2); BASOPHILS % (AUTO) 0.7 % (0-1); EOSINOPHILS # (AUTO) 0.1 X10'3 (0-0.9); EOSINOPHILS % (AUTO) 1.2 % (0-6); HEMOGLOBIN 8.2 g/dl (14.0-17.9); LYMPHOCYTES # (AUTO) 0.7 X10'3 (1.1-4.8); LYMPHOCYTES % (AUTO) 6.3 % (21-51); MEAN CORPUSCULAR HEMOGLOBIN 29.8 PG (27.0-31.0); MEAN CORPUSCULAR HGB CONC 32.7 g/dL (33.0-36.5); MEAN PLATELET VOLUME 6.3 FL (7.4-10.4); MONOCYTES # (AUTO) 0.6 X10'3 (0-0.9); MONOCYTES % (AUTO) 5.4 % (2-12); NEUTROPHILS # (AUTO) 10.1 X10'3 (1.8-7.7); NEUTROPHILS % (AUTO) 86.4 % (42-75); PLATELET COUNT 273 X10'3 (140-440); RED BLOOD COUNT 2.75 X10'6 (4.70-6.10); RED CELL DISTRIBUTION WIDTH 17.2 % (11.5-14.5); WHITE BLOOD COUNT 11.7 X10'3 (4.5-11.0)
[2023-01-29 01:40] LABS: APTT 38 SECONDS (22-32); D-DIMER 1.21 MG/L FEU (0-0.50); INR 1.2 INR; PROTHROMBIN TIME 12.4 SECONDS (9.0-12.0)
[2023-01-29 01:41] LABS: ALANINE AMINOTRANSFERASE 47 U/L (12-78); ALBUMIN/GLOBULIN RATIO 0.4 (1.1-1.5); ALKALINE PHOSPHATASE 69 IU/L (46-116); ANION GAP 8 (8-16); ASPARTATE AMINO TRANSFERASE 36 U/L (10-37); BILIRUBIN,TOTAL 0.5 MG/DL (0.1-1.0); BLOOD UREA NITROGEN 66 MG/DL (7-18); BUN/CREATININE RATIO 25.5 (10.0-20.0); CALCIUM 8.6 MG/DL (8.5-10.1); CHLORIDE 103 MMOL/L (99-107); CREATININE 2.59 MG/DL (0.60-1.10); GLUCOSE 223 MG/DL (70-104); POTASSIUM 5.8 MMOL/L (3.5-5.1); SODIUM 131 MMOL/L (135-145); TOTAL CARBON DIOXIDE 20.2 MMOL/L (24-32); TOTAL PROTEIN 6.6 G/DL (6.4-8.2); eCRCL 25 ML/MIN; eGFR 24 ML/MIN
--- NOTE | 2023-01-29 01:43 | NUR ---
RT PLACED PT HOME CPAP MACHINE ON PT.
[2023-01-29] MEDS ORDERED: VANC125C11 PO (02:04)
[2023-01-29] MEDS ORDERED: PANT20TA18 PO (02:04)
[2023-01-29] MEDS ORDERED: CEFT500V5 IM (02:04)
[2023-01-29] MEDS ORDERED: SODI650T29 PO (02:04)
--- NOTE | 2023-01-29 06:40 | NUR ---
received report megan GRIMALDO. Pt sleeping with his own BiPap.
[2023-01-29] MEDS ORDERED: temazepam 15mg capsule PO PRN (07:10)
[2023-01-29] MEDS ORDERED: HYDROcodone/acetaminophen 5mg/325mg tablet PO PRN (07:10)
[2023-01-29] MEDS ORDERED: pantoprazole 40mg Tablet.DR PO SCH (07:30)
[2023-01-29] MEDS: apixaban 5mg tablet PO SCH ×2 (07:53→20:08)
[2023-01-29] MEDS: docusate sod 100mg capsule PO SCH ×2 (07:53→20:07)
[2023-01-29] MEDS: amLODIPine 5mg tablet PO SCH (07:54)
[2023-01-29] MEDS: ferrous sulfate 325mg tablet PO SCH ×2 (07:54→20:07)
[2023-01-29] MEDS: furosemide 10 MG/1 ML 10ml inj IV SCH ×2 (07:55→20:08)
[2023-01-29] MEDS: CefTRIAXone/D5W-Rocephin 1gm 50 ML IV SCH (07:56)
[2023-01-29] MEDS: azithromycin/NS 500mg/250ml 250 ML IV SCH (07:56)
[2023-01-29] MEDS: ranolazine 500mg SR tablet (Q12H) PO SCH ×2 (07:57→20:07)
[2023-01-29] MEDS: pantoprazole 40mg Tablet.DR PO SCH (08:00)
[2023-01-29] MEDS ORDERED: non-formulary drug (Omeprazole 1 CAP) PO SCH (08:00)
[2023-01-29] MEDS: nitroGLYCERIN 0.4mg/hour patch TD SCH (08:35)
[2023-01-29] MEDS: dronabinol 2.5mg capsule PO SCH (08:57)
[2023-01-29] MEDS: cyanocobalamin 500mcg tablet PO SCH (08:57)
[2023-01-29] MEDS: levoTHYROXINE 100mcg tablet PO SCH (08:58)
[2023-01-29] MEDS: ascorbic acid 500mg tablet PO SCH ×2 (08:58→20:07)
[2023-01-29] MEDS: sodium bicarbonate 650mg tablet PO SCH ×3 (08:58→20:07)
--- NOTE | 2023-01-29 09:22 | NUR ---
REQUESTED KARLA PO FROM PHARM.
[2023-01-29] MEDS: vancomycin 125mg/5ml ORAL solution 5ml UD oral syringe PO SCH ×3 (09:47→20:08)
--- NOTE | 2023-01-29 10:20 | NUR ---
Received report from ED RNDamien
[2023-01-29] MEDS: HYDROcodone/acetaminophen 10/325mg tab PO PRN ×2 (12:00→21:24)
[2023-01-29] MEDS: insulin Lispro (HumaLOG) vial - multi-dose SQ SCH ×2 (14:52→20:11)
[2023-01-29] MEDS ORDERED: potassium Cl 40MEQ/1/2NS 520ml 520 ML IV PRN (16:35)
[2023-01-29] MEDS ORDERED: magnesium Cl slow-release 64mg tablet PO PRN (16:35)
[2023-01-29] MEDS ORDERED: potassium Cl 20 mEq SR tablet PO PRN ×2 (16:35)
[2023-01-29] MEDS ORDERED: magnesium 4gm in 100ml NS 100 ML IV PRN (16:35)
[2023-01-29] MEDS ORDERED: magnesium 2GM in 50ml NS 50 ML IV PRN (16:35)
[2023-01-29] MEDS: K and/or MAG REPLACEMENT MC SCH (18:31)
[2023-01-29] MEDS: atorvastatin 20mg tablet PO SCH (20:08)
[2023-01-29] MEDS: insulin glargine (Lantus) pen - multi-dose SQ SCH (23:00)
[2023-01-30] VITALS (10 sets, daily range): BP systolic 134–152; BP diastolic 49–60; PULSE 65–78; RESP 15–18; TEMP 97.4–98.5; O2SAT 98–100
[2023-01-30] MEDS: vancomycin 125mg/5ml ORAL solution 5ml UD oral syringe PO SCH ×4 (02:51→20:36)
--- NOTE | 2023-01-30 06:20 | NUR ---
Problems reprioritized. Patient report given, questions answered & plan of care reviewed with BLAISE Meier.
--- NOTE | 2023-01-30 07:04 | NUR ---
Patient in room PCU 3011. I have received report from ZHOU WELSH and had the opportunity to ask questions and assume patient care.
[2023-01-30 07:10] LABS: BASOPHILS # (AUTO) 0.1 X10'3 (0-0.2); BASOPHILS % (AUTO) 1.2 % (0-1); EOSINOPHILS # (AUTO) 0.3 X10'3 (0-0.9); EOSINOPHILS % (AUTO) 3.7 % (0-6); HEMATOCRIT 24.9 % (42.0-52.0); HEMOGLOBIN 8.3 g/dl (14.0-17.9); LYMPHOCYTES % (AUTO) 12.1 % (21-51); MEAN CORPUSCULAR HEMOGLOBIN 30.3 PG (27.0-31.0); MEAN CORPUSCULAR HGB CONC 33.4 g/dL (33.0-36.5); MEAN CORPUSCULAR VOLUME 90.5 FL (78-98); MEAN PLATELET VOLUME 6.4 FL (7.4-10.4); MONOCYTES # (AUTO) 0.7 X10'3 (0-0.9); MONOCYTES % (AUTO) 7.9 % (2-12); NEUTROPHILS # (AUTO) 6.2 X10'3 (1.8-7.7); NEUTROPHILS % (AUTO) 75.1 % (42-75); PLATELET COUNT 319 X10'3 (140-440); RED BLOOD COUNT 2.75 X10'6 (4.70-6.10); RED CELL DISTRIBUTION WIDTH 17.3 % (11.5-14.5); WHITE BLOOD COUNT 8.3 X10'3 (4.5-11.0)
[2023-01-30] MEDS: CefTRIAXone/D5W-Rocephin 1gm 50 ML IV SCH (07:18)
[2023-01-30] MEDS: nitroGLYCERIN 0.4mg/hour patch TD SCH (07:19)
[2023-01-30] MEDS: azithromycin/NS 500mg/250ml 250 ML IV SCH (07:19)
[2023-01-30] MEDS: levoTHYROXINE 100mcg tablet PO SCH (07:20)
[2023-01-30] MEDS: cyanocobalamin 500mcg tablet PO SCH (07:20)
[2023-01-30] MEDS: apixaban 5mg tablet PO SCH (07:20)
[2023-01-30] MEDS: docusate sod 100mg capsule PO SCH ×2 (07:20→20:20)
[2023-01-30] MEDS: sodium bicarbonate 650mg tablet PO SCH ×3 (07:20→20:20)
[2023-01-30] MEDS: ascorbic acid 500mg tablet PO SCH ×2 (07:20→20:20)
[2023-01-30] MEDS: pantoprazole 40mg Tablet.DR PO SCH (07:20)
[2023-01-30] MEDS: ranolazine 500mg SR tablet (Q12H) PO SCH ×2 (07:22→20:21)
[2023-01-30] MEDS: ferrous sulfate 325mg tablet PO SCH ×2 (07:22→20:20)
[2023-01-30] MEDS: amLODIPine 5mg tablet PO SCH (07:22)
[2023-01-30] MEDS: furosemide 10 MG/1 ML 10ml inj IV SCH ×2 (07:24→20:19)
[2023-01-30 07:45] LABS: ALANINE AMINOTRANSFERASE 43 U/L (12-78); ALBUMIN 2.1 G/DL (3.4-5.0); ALBUMIN/GLOBULIN RATIO 0.4 (1.1-1.5); ALKALINE PHOSPHATASE 72 IU/L (46-116); ANION GAP 8 (8-16); ASPARTATE AMINO TRANSFERASE 39 U/L (10-37); BILIRUBIN,TOTAL 0.7 MG/DL (0.1-1.0); BLOOD UREA NITROGEN 57 MG/DL (7-18); BUN/CREATININE RATIO 22.2 (10.0-20.0); CALCIUM 8.9 MG/DL (8.5-10.1); CHLORIDE 102 MMOL/L (99-107); CREATININE 2.57 MG/DL (0.60-1.10); GLUCOSE 109 MG/DL (70-104); MAGNESIUM 1.6 MG/DL (1.5-2.4); POTASSIUM 5.2 MMOL/L (3.5-5.1); SODIUM 132 MMOL/L (135-145); TOTAL CARBON DIOXIDE 22.5 MMOL/L (24-32); TOTAL PROTEIN 6.8 G/DL (6.4-8.2); eCRCL 25 ML/MIN; eGFR 24 ML/MIN
[2023-01-30] MEDS: K and/or MAG REPLACEMENT MC SCH ×2 (08:00→20:11)
[2023-01-30] MEDS: dronabinol 2.5mg capsule PO SCH (08:17)
--- NOTE | 2023-01-30 08:40 | NUR ---
Low jill consult: Pt presents with a jlil score of 12 per EMR. 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 Wound care has been consulted; pending [facility] note. Will continue to monitor closely. Addendum: 01/30/23 at [address] Amended: Links added.
[2023-01-30] MEDS: insulin Lispro (HumaLOG) vial - multi-dose SQ SCH (13:41)
[2023-01-30] MEDS: HYDROcodone/acetaminophen 10/325mg tab PO PRN ×2 (13:43→20:21)
--- NOTE | 2023-01-30 18:36 | NUR ---
Problems reprioritized. Patient report given TO ARSH WELSH, questions answered & plan of care reviewed with .
[2023-01-30] MEDS: atorvastatin 20mg tablet PO SCH (20:20)
[2023-01-30] MEDS: insulin glargine (Lantus) pen - multi-dose SQ SCH (20:36)
[2023-01-30] MEDS: normal saline 1000ml 1,000 ML IV SCH (22:31)
[2023-01-31] VITALS (11 sets, daily range): BP systolic 124–144; BP diastolic 54–68; PULSE 58–80; RESP 16–22; TEMP 97.7–99.1; O2SAT 97–100
[2023-01-31] MEDS: HYDROcodone/acetaminophen 10/325mg tab PO PRN ×2 (01:22→05:37)
[2023-01-31] MEDS: vancomycin 125mg/5ml ORAL solution 5ml UD oral syringe PO SCH ×3 (01:22→13:55)
[2023-01-31] MEDS: normal saline 1000ml 1,000 ML IV SCH (01:23)
[2023-01-31 06:04] LABS: BASOPHILS # (AUTO) 0.1 X10'3 (0-0.2); BASOPHILS % (AUTO) 1.1 % (0-1); EOSINOPHILS # (AUTO) 0.3 X10'3 (0-0.9); EOSINOPHILS % (AUTO) 4.1 % (0-6); HEMATOCRIT 23.2 % (42.0-52.0); HEMOGLOBIN 7.6 g/dl (14.0-17.9); LYMPHOCYTES # (AUTO) 1.3 X10'3 (1.1-4.8); LYMPHOCYTES % (AUTO) 17.8 % (21-51); MEAN CORPUSCULAR HEMOGLOBIN 29.9 PG (27.0-31.0); MEAN CORPUSCULAR HGB CONC 32.9 g/dL (33.0-36.5); MEAN CORPUSCULAR VOLUME 90.8 FL (78-98); MEAN PLATELET VOLUME 6.3 FL (7.4-10.4); MONOCYTES # (AUTO) 0.8 X10'3 (0-0.9); MONOCYTES % (AUTO) 10.9 % (2-12); NEUTROPHILS # (AUTO) 4.8 X10'3 (1.8-7.7); NEUTROPHILS % (AUTO) 66.1 % (42-75); PLATELET COUNT 296 X10'3 (140-440); RED BLOOD COUNT 2.55 X10'6 (4.70-6.10); RED CELL DISTRIBUTION WIDTH 16.9 % (11.5-14.5); WHITE BLOOD COUNT 7.3 X10'3 (4.5-11.0)
[2023-01-31 06:37] LABS: ALANINE AMINOTRANSFERASE 35 U/L (12-78); ALBUMIN/GLOBULIN RATIO 0.4 (1.1-1.5); ALKALINE PHOSPHATASE 69 IU/L (46-116); ANION GAP 7 (8-16); ASPARTATE AMINO TRANSFERASE 35 U/L (10-37); BILIRUBIN,TOTAL 0.7 MG/DL (0.1-1.0); BLOOD UREA NITROGEN 54 MG/DL (7-18); BUN/CREATININE RATIO 19.6 (10.0-20.0); CALCIUM 8.6 MG/DL (8.5-10.1); CHLORIDE 99 MMOL/L (99-107); CREATININE 2.75 MG/DL (0.60-1.10); GLUCOSE 130 MG/DL (70-104); MAGNESIUM 1.5 MG/DL (1.5-2.4); POTASSIUM 4.9 MMOL/L (3.5-5.1); SODIUM 131 MMOL/L (135-145); TOTAL CARBON DIOXIDE 25.5 MMOL/L (24-32); TOTAL PROTEIN 6.5 G/DL (6.4-8.2); eCRCL 23 ML/MIN; eGFR 23 ML/MIN
--- NOTE | 2023-01-31 06:51 | NUR ---
Patient in room PCU 3011. I have received report from Javier WELSH and had the opportunity to ask questions and assume patient care.
[2023-01-31] MEDS: azithromycin/NS 500mg/250ml 250 ML IV SCH (07:37)
[2023-01-31] MEDS: CefTRIAXone/D5W-Rocephin 1gm 50 ML IV SCH (07:39)
[2023-01-31] MEDS: nitroGLYCERIN 0.4mg/hour patch TD SCH (07:47)
[2023-01-31] MEDS: dronabinol 2.5mg capsule PO SCH (07:47)
[2023-01-31] MEDS: pantoprazole 40mg Tablet.DR PO SCH (07:48)
[2023-01-31] MEDS: sodium bicarbonate 650mg tablet PO SCH ×3 (07:48→20:48)
[2023-01-31] MEDS: ascorbic acid 500mg tablet PO SCH ×2 (07:48→20:48)
[2023-01-31] MEDS: ferrous sulfate 325mg tablet PO SCH ×2 (07:49→20:48)
[2023-01-31] MEDS: docusate sod 100mg capsule PO SCH ×2 (07:50→20:00)
[2023-01-31] MEDS: ranolazine 500mg SR tablet (Q12H) PO SCH ×2 (07:52→20:48)
[2023-01-31] MEDS: cyanocobalamin 500mcg tablet PO SCH (07:53)
[2023-01-31] MEDS: levoTHYROXINE 100mcg tablet PO SCH (07:55)
[2023-01-31] MEDS: furosemide 10 MG/1 ML 10ml inj IV SCH ×2 (07:55→19:45)
[2023-01-31] MEDS: amLODIPine 5mg tablet PO SCH (07:58)
[2023-01-31] MEDS: K and/or MAG REPLACEMENT MC SCH ×2 (08:00→20:00)
[2023-01-31 12:41] LABS: BFSOURCE RIGHT PLEURAL FLD; PLEURAL FLUID PH 7.472 (7.63-7.65)
[2023-01-31 12:54] LABS: BF RBC COUNT 9 /CU MM; BF WBC COUNT 108 /CU MM (0-1000); BFAPPEAR HAZY; BFCOLOR YELLOW; BFSOURCE RIGHT PLEURAL FLD; BFVOLUME 65 ML; LYMPHOCYTES,BODY FLUID 64 %; NEUTROPHILS,BODY FLUID 4 %
[2023-01-31 12:55] LABS: EOSINOPHILS,BODY FLUID 1 %; MONOCYTES,BODY FLUID 31 %
[2023-01-31 13:08] LABS: GLUCOSE,BODY FLUID 160 MG/DL; LDH,BODY FLUID 55 U/L
[2023-01-31] MEDS: insulin Lispro (HumaLOG) vial - multi-dose SQ SCH (13:53)
--- NOTE | 2023-01-31 15:34 | NUR ---
Nutrition consult: re " pt no appetite, requesting protein shakes". Pt is currently on a carbohydrate controlled diet with average PO intake of 0% for 6 meals. Carbohydrate controlled diet not warranted given last A1c of 5.9% on 01/15/23 per EMR. Given appropriate A1c, advanced age, and poor PO intake, recommend liberalizing to a regular diet; resident agreeable to recommendation per T/C discussion. Additionally resident agreeable to Vianney SHIN and not agreeable to Ensure Enlive at this time. Communicated T/C discussion with RN. Recommendations: 1.liberalizing to regular diet; carbohydrate controlled not warranted given poor PO intake of 0% x 6 meals, advanced age, and A1c of 5.9% on 01/15/23, 2.Vianney SHIN; agreeable on 01/31 Addendum: 01/31/23 at [address] Amended: Links added.
--- NOTE | 2023-01-31 15:56 | NUR ---
PRESSURE ULCER EDUCATION: DEFINITION: A pressure ulcer is an area of skin that breaks down when you stay in one position too long. The constant pressure against the skin reduces the blood flow to that area and the affected tissue dies. CAUSES: "Being bedridden or in a wheelchair "Fragile skin "Having a chronic condition, such as diabetes or vascular disease "Inability to move certain parts of your body without assistance "Older age "Incontinence of urine or stool SYMPTOMS: "A reddened area that DOES NOT turn white when pressed on - this can be the beginning of a pressure ulcer "A blister, deep sore or a crater - these can be advanced pressure ulcers FIRST AID: "Relieve the pressure on this area "Keep the area clean and dry "Call your primary doctor if you see any of the above symptoms "DO NOT massage the area "DO NOT use a donut shaped or ring shaped pillow- these actually interfere with the blood flow and cause complications PREVENTION: "Check for pressure ulcers everyday "Change position at least every two hours to relieve pressure "Use items that help relieve pressure- pillows, sheepskin, foam padding, and powders. "Keep skin clean and dry "Eat healthy well balanced meals "Exercise daily IF YOU SEE ANY OF THESE SYMPTOMS WHILE IN THE HOSPITAL - TELL YOUR NURSE IMMEDIATELY. IF YOU SEE ANY OF THESE SYMPTOMS WHILE AT HOME OR HAVE ANY QUESTIONS OR CONCERNS ABOUT PRESSURE ULCERS - CALL YOUR PRIMARY DOCTOR IMMEDIATELY. Addendum: 01/31/23 at 1557 by Ting Pretty RN Amended: Links added.
[2023-01-31] MEDS: NUT.TX.IMP.RENAL FXN,LAC-REDUC (Nepro) 237 ML VANILLA PO SCH (18:00)
--- NOTE | 2023-01-31 18:39 | NUR ---
Problems reprioritized. Patient report given, questions answered & plan of care reviewed with Roge RUDOLPH.
[2023-01-31] MEDS: atorvastatin 20mg tablet PO SCH (20:48)
[2023-01-31] MEDS: insulin glargine (Lantus) pen - multi-dose SQ SCH (21:02)
[2023-02-01 02:00] VITALS: BP 120/63; PULSE 54; RESP 18; TEMP 99.1; O2SAT 95
--- NOTE | 2023-02-01 03:25 | NUR ---
WARDROBE SUPERVISOR documentation: I have reviewed and agree with all interventions, assessments performed and documented by BUDDY RUDOLPH. SEE FOLLOW UP DOCUMENTATION FOR ANY CHANGES.
--- NOTE | 2023-02-01 06:30 | NUR ---
Patient in room PCU 3011. I have received report from Roge RUDOLPH and had the opportunity to ask questions and assume patient care.
[2023-02-01 07:00] VITALS: BP 132/47; PULSE 64; RESP 18; TEMP 98.6; O2SAT 95
[2023-02-01 07:05] LABS: BASOPHILS # (AUTO) 0.1 X10'3 (0-0.2); BASOPHILS % (AUTO) 0.9 % (0-1); EOSINOPHILS # (AUTO) 0.2 X10'3 (0-0.9); HEMATOCRIT 22.5 % (42.0-52.0); HEMOGLOBIN 7.6 g/dl (14.0-17.9); LYMPHOCYTES # (AUTO) 1.4 X10'3 (1.1-4.8); LYMPHOCYTES % (AUTO) 17.8 % (21-51); MEAN CORPUSCULAR HEMOGLOBIN 30.3 PG (27.0-31.0); MEAN CORPUSCULAR HGB CONC 33.9 g/dL (33.0-36.5); MEAN CORPUSCULAR VOLUME 89.4 FL (78-98); MEAN PLATELET VOLUME 6.4 FL (7.4-10.4); MONOCYTES # (AUTO) 0.7 X10'3 (0-0.9); MONOCYTES % (AUTO) 9.5 % (2-12); NEUTROPHILS # (AUTO) 5.4 X10'3 (1.8-7.7); NEUTROPHILS % (AUTO) 68.8 % (42-75); PLATELET COUNT 331 X10'3 (140-440); RED BLOOD COUNT 2.52 X10'6 (4.70-6.10); RED CELL DISTRIBUTION WIDTH 16.8 % (11.5-14.5); WHITE BLOOD COUNT 7.9 X10'3 (4.5-11.0)
[2023-02-01 07:47] LABS: ALANINE AMINOTRANSFERASE 34 U/L (12-78); ALBUMIN/GLOBULIN RATIO 0.5 (1.1-1.5); ALKALINE PHOSPHATASE 69 IU/L (46-116); ANION GAP 8 (8-16); ASPARTATE AMINO TRANSFERASE 30 U/L (10-37); BILIRUBIN,TOTAL 0.5 MG/DL (0.1-1.0); BLOOD UREA NITROGEN 50 MG/DL (7-18); BUN/CREATININE RATIO 17.4 (10.0-20.0); CALCIUM 8.5 MG/DL (8.5-10.1); CHLORIDE 98 MMOL/L (99-107); CREATININE 2.88 MG/DL (0.60-1.10); GLUCOSE 103 MG/DL (70-104); LACTATE DEHYDROGENASE 262 U/L (85-227); MAGNESIUM 1.6 MG/DL (1.5-2.4); POTASSIUM 4.7 MMOL/L (3.5-5.1); SODIUM 132 MMOL/L (135-145); TOTAL CARBON DIOXIDE 25.8 MMOL/L (24-32); TOTAL PROTEIN 6.3 G/DL (6.4-8.2); eCRCL 22 ML/MIN; eGFR 21 ML/MIN
[2023-02-01] MEDS: azithromycin/NS 500mg/250ml 250 ML IV SCH (08:00)
[2023-02-01] MEDS: K and/or MAG REPLACEMENT MC SCH (08:00)
[2023-02-01] MEDS: docusate sod 100mg capsule PO SCH (08:01)
[2023-02-01] MEDS: levoTHYROXINE 100mcg tablet PO SCH (08:01)
[2023-02-01] MEDS: ferrous sulfate 325mg tablet PO SCH (08:02)
[2023-02-01] MEDS: amLODIPine 5mg tablet PO SCH (08:03)
[2023-02-01] MEDS: pantoprazole 40mg Tablet.DR PO SCH (08:04)
[2023-02-01] MEDS: ascorbic acid 500mg tablet PO SCH (08:04)
[2023-02-01] MEDS: cyanocobalamin 500mcg tablet PO SCH (08:04)
[2023-02-01] MEDS: sodium bicarbonate 650mg tablet PO SCH (08:04)
[2023-02-01] MEDS: nitroGLYCERIN 0.4mg/hour patch TD SCH (08:05)
[2023-02-01] MEDS: furosemide 10 MG/1 ML 10ml inj IV SCH (08:12)
[2023-02-01] MEDS: CefTRIAXone/D5W-Rocephin 1gm 50 ML IV SCH (08:12)
[2023-02-01] MEDS: NUT.TX.IMP.RENAL FXN,LAC-REDUC (Nepro) 237 ML VANILLA PO SCH (08:20)
[2023-02-01] MEDS: dronabinol 2.5mg capsule PO SCH (09:11)
[2023-02-01] MEDS: ranolazine 500mg SR tablet (Q12H) PO SCH (09:11)
[2023-02-01] MEDS: HYDROcodone/acetaminophen 10/325mg tab PO PRN (10:30)
[2023-02-01 11:00] VITALS: BP 117/43; PULSE 78; RESP 13; TEMP 98.4; O2SAT 100
--- NOTE | 2023-02-01 11:49 | NUR ---
ATTORNEY documentation: I have reviewed and agree with all interventions, assessments performed and documented by Danae RUDOLPH.
--- NOTE | 2023-02-01 13:45 | NUR ---
Report called to [facility] nurse. All questions answered.
--- NOTE | 2023-02-01 13:55 | NUR ---
Patient transfered to [facility] with all belongings. IV removed. Left via [employer].
== END 2023-02-01 13:55 | DRG 371 ==
LOC: ER 16:09 → UNDOADMIN 23:26 → ED HOLD 23:26 → UNDOADMIN 23:31 → ED HOLD 23:31 → EDBEDREQ 01-29 05:57 → PCU 3S 01-29 10:41
PROVIDERS: ADMIT Family Medicine; ATTEND Internal Medicine
PROC: 5A09457 Assistance with Respiratory Ventilation, 24-96 Consecutive Hours, Continuous Positive Airway Pressure (ICD-10-PCS; 2023-01-29)
PROC: 0W9930Z Drainage of Right Pleural Cavity with Drainage Device, Percutaneous Approach (ICD-10-PCS; principal; 2023-01-31)
DX: A04.72 Enterocolitis due to Clostridium difficile, not specified as recurrent (principal); I50.23 Acute on chronic systolic (congestive) heart failure; J18.9 Pneumonia, unspecified organism; J96.01 Acute respiratory failure with hypoxia; I13.0 Hypertensive heart and chronic kidney disease with heart failure and stage 1 through stage 4 chronic kidney disease, or unspecified chronic kidney disease; N18.4 Chronic kidney disease, stage 4 (severe); N17.9 Acute kidney failure, unspecified; E87.1 Hypo-osmolality and hyponatremia; I50.20 Unspecified systolic (congestive) heart failure; J90 Pleural effusion, not elsewhere classified; I48.91 Unspecified atrial fibrillation; E78.00 Pure hypercholesterolemia, unspecified; E87.5 Hyperkalemia; L89.102 Pressure ulcer of unspecified part of back, stage 2; I25.10 Atherosclerotic heart disease of native coronary artery without angina pectoris; I95.1 Orthostatic hypotension; E11.22 Type 2 diabetes mellitus with diabetic chronic kidney disease; Z20.822 Contact with and (suspected) exposure to COVID-19; N40.0 Benign prostatic hyperplasia without lower urinary tract symptoms; D64.9 Anemia, unspecified; E88.09 Other disorders of plasma-protein metabolism, not elsewhere classified; K59.09 Other constipation; Z95.1 Presence of aortocoronary bypass graft
CPT/HCPCS: 32555; 36415; 71046; 71250; 76942; 80053; 82945; 82948; 83605; 83615; 83735; 83880; 83986; 84100; 84145; 84157; 84484; 85025; 85379; 85610; 85730; 87040; 87081; 87811; 89051; 94760; 97110; 97161; 97530; 99285; A4421; A4649; A6212; A6213; A6250; A6449; C1729; G0378; J0456; J0610; J0696; J1815; J1940; J3490; J7030; Q0167

== ENCOUNTER 2023-11-14 13:01 | Emergency (ER) | payer OTHER, MEDICARE ==
[~2023-11-14] VITALS: Ht 182.9 cm; Wt 83.0 kg
[~2023-11-14 13:01] MED LIST changes: +CEFT500V5 IM; -FLO0.4C PO; -HYDR-4070 PO; -ISOS120T13 PO; -METO-384 PO; +PANT20TA18 PO; -SODI100035 PO; +SODI650T29 PO; +VANC125C11 PO
[2023-11-14 13:42] LABS: BASOPHILS % (AUTO) 0.3 % (0-1); EOSINOPHILS % (AUTO) 0.1 % (0-6); HEMATOCRIT 24.1 % (42.0-52.0); HEMOGLOBIN 7.5 g/dl (14.0-17.9); LYMPHOCYTES # (AUTO) 0.6 X10'3 (1.1-4.8); LYMPHOCYTES % (AUTO) 4.3 % (21-51); MEAN CORPUSCULAR HEMOGLOBIN 28.5 PG (27.0-31.0); MEAN CORPUSCULAR HGB CONC 30.9 g/dL (33.0-36.5); MEAN CORPUSCULAR VOLUME 92.4 FL (78-98); MEAN PLATELET VOLUME 6.5 FL (7.4-10.4); MONOCYTES % (AUTO) 6.6 % (2-12); NEUTROPHILS # (AUTO) 13.4 X10'3 (1.8-7.7); NEUTROPHILS % (AUTO) 88.7 % (42-75); PLATELET COUNT 334 X10'3 (140-440); RED BLOOD COUNT 2.61 X10'6 (4.70-6.10); RED CELL DISTRIBUTION WIDTH 17.2 % (11.5-14.5); WHITE BLOOD COUNT 15.1 X10'3 (4.5-11.0)
[2023-11-14 14:00] LABS: ALBUMIN 1.4 G/DL (3.4-5.0); ANION GAP 8 (8-16); BLOOD UREA NITROGEN 75 MG/DL (7-18); BUN/CREATININE RATIO 31.1 (10.0-20.0); CALCIUM 8.9 MG/DL (8.5-10.1); CHLORIDE 103 MMOL/L (99-107); CREATININE 2.41 MG/DL (0.60-1.10); GLUCOSE 263 MG/DL (70-104); POTASSIUM 5.4 MMOL/L (3.5-5.1); SODIUM 139 MMOL/L (135-145); TOTAL CARBON DIOXIDE 28.1 MMOL/L (24-32); eCRCL 28 ML/MIN; eGFR 26 ML/MIN
[2023-11-14 14:29] LABS: PRO BRAIN NATRIURETIC PEPTIDE > 30000 PG/ML (0-450)
[2023-11-14] MEDS ORDERED: CIPR-202 PO (18:29)
[2023-11-14 18:50] VITALS: BP 146/56; PULSE 84; RESP 24; TEMP 98.7; O2SAT 90
== END 2023-11-14 19:15 | disposition home or self-care (01) ==
LOC: ER 13:02
DX: D72.828 Other elevated white blood cell count (principal); I48.91 Unspecified atrial fibrillation; I25.10 Atherosclerotic heart disease of native coronary artery without angina pectoris; E78.00 Pure hypercholesterolemia, unspecified; I10 Essential (primary) hypertension; D64.9 Anemia, unspecified; E11.9 Type 2 diabetes mellitus without complications; E03.9 Hypothyroidism, unspecified; Z86.718 Personal history of other venous thrombosis and embolism; Z95.1 Presence of aortocoronary bypass graft; Z98.890 Other specified postprocedural states; Z60.2 Problems related to living alone; Z79.899 Other long term (current) drug therapy; Z79.2 Long term (current) use of antibiotics; Z79.4 Long term (current) use of insulin
CPT/HCPCS: 36415; 71045; 71250; 80048; 82948; 83880; 85025; 93005; 99285